=== PATIENT | male | born 2000 | race Two or more races ===

== ENCOUNTER 2024-05-04 19:54 | Emergency (ER) | payer OTHER ==
[~2024-05-04] VITALS: Ht 185.4 cm; Wt 108.2 kg
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
[2024-05-04] MEDS ORDERED: HYDR-4902 PO (21:39)
[2024-05-04] MEDS ORDERED: IBUP-1455 PO (21:39)
[2024-05-04] MEDS ORDERED: CEPH500C PO (21:58)
[2024-05-05] MEDS: CEPHALEXIN 250 MG CAP PO ONE (00:10)
[2024-05-05] MEDS: NEOMYCIN-BACITRACIN-POLYM 15GM TOP OINT TOP ONE (00:11)
[2024-05-05] MEDS: HYDROcodone-ACET 10/325MG TAB PO ONE (00:11)
[2024-05-05 00:14] VITALS: BP 132/67; PULSE 92; TEMP 98.3; O2SAT 98
[2024-05-05 00:15] VITALS: RESP 20
== END 2024-05-05 00:17 | disposition home or self-care (01) ==
LOC: ER 19:54
DX: S62.635A Displaced fracture of distal phalanx of left ring finger, initial encounter for closed fracture (principal); S01.511A Laceration without foreign body of lip, initial encounter; S60.512A Abrasion of left hand, initial encounter; V89.2XXA Person injured in unspecified motor-vehicle accident, traffic, initial encounter; Y93.55 Activity, bike riding; Y92.89 Other specified places as the place of occurrence of the external cause; Y99.8 Other external cause status
CPT/HCPCS: 29130; 70486; 73130